=== PATIENT | female | born 1980 | race Caucasian/White ===

== ENCOUNTER 2017-01-08 08:16 | Emergency (ER) | payer OTHER ==
[2017-01-08 09:37] LABS: RED BLOOD COUNT 4.29 M/UL (4.00-5.10); WHITE BLOOD COUNT 9.2 K/UL (4.5-11.0)
[2017-01-08 09:57] LABS: BUN/CREATININE RATIO 28 (0-10)
== END 2017-01-08 12:08 | disposition home or self-care (01) ==
LOC: ER1 08:16
PROVIDERS: Physician Assistant
DX: A59.9 Trichomoniasis, unspecified (principal); N83.209 Unspecified ovarian cyst, unspecified side; R10.32 Left lower quadrant pain; R10.31 Right lower quadrant pain; F17.210 Nicotine dependence, cigarettes, uncomplicated
CPT/HCPCS: 36415; 76830; 80053; 81001; 83690; 84703; 85025; 87210; 99284; J7050; Q9962

== ENCOUNTER → 2021-03-06 | Outpatient (CLI) | payer OTHER ==
[~2021-03-06] MED LIST: FISH OIL 1,0001 EAC7 PO; HYDROCHLOROTH12.5 MG PO; HYDROCODON-ACE1 EAC4 PO; VITAMIN B12 PO; VITAMIN D350 MC3 PO
== END ==
LOC: NM 12:36
DX: R10.11 Right upper quadrant pain (principal); R93.2 Abnormal findings on diagnostic imaging of liver and biliary tract
CPT/HCPCS: 78226; A9537

== ENCOUNTER → 2021-04-05 | Day surgery (SDC) | payer OTHER ==
[2021-04-05 07:51] LABS: BUN/CREATININE RATIO 17 (0-10)
== END | disposition home or self-care (01) ==
LOC: OR 06:55
PROVIDERS: Surgery
DX: K81.1 Chronic cholecystitis (principal); K82.8 Other specified diseases of gallbladder; F17.200 Nicotine dependence, unspecified, uncomplicated; Z20.822 Contact with and (suspected) exposure to COVID-19; E66.01 Morbid (severe) obesity due to excess calories; E78.5 Hyperlipidemia, unspecified; K21.9 Gastro-esophageal reflux disease without esophagitis; Z98.51 Tubal ligation status
CPT/HCPCS: 36415; 80048; J0690; J1100; J1885; J2001; J2250; J2405; J2704; J2710; J3010; J7030; J7120